=== PATIENT | male | born 1985 | race Caucasian/White ===

== ENCOUNTER 2018-01-03 00:05 | Emergency (ER) | payer SELFPAY ==
[~2018-01-03] VITALS: Ht 180.3 cm; Wt 63.6 kg
[~2018-01-03 00:05] MED LIST: CIPRODEX OTIC7.5 ML BOTH EARS; EXTRA STRENGTH500 M1 PO; FLEXERIL5 MG PO; FLONASE16 G1 BOTH NARES; IBUPROFEN800 MG PO; MOTRIN800 MG PO; NAPROSYN500 MG PO; NORCO 5/3251 TABLET PO; ZITHROMAX Z-PA250 MG PO
[2018-01-03 00:08] VITALS: BP 90/47
[2018-01-03] MEDS ORDERED: PROAIR HFA8.5 GM IH (01:29)
[2018-01-03] MEDS ORDERED: ZANTAC150 MG PO (01:29)
== END 2018-01-03 02:17 | disposition home or self-care (01) ==
LOC: EME 00:05
PROC: 0HQFXZZ Repair Right Hand Skin, External Approach (ICD-10-PCS; principal; 2018-01-03)
DX: S61.212A Laceration without foreign body of right middle finger without damage to nail, initial encounter (principal); S61.210A Laceration without foreign body of right index finger without damage to nail, initial encounter; W25.XXXA Contact with sharp glass, initial encounter
CPT/HCPCS: 99281; 99283

== ENCOUNTER 2018-05-07 16:19 | Emergency (ER) | payer SELFPAY ==
[~2018-05-07] VITALS: Ht 180.3 cm; Wt 61.1 kg
[~2018-05-07 16:19] MED LIST changes: +PROAIR HFA8.5 GM IH; +ZANTAC150 MG PO
[2018-05-07] MEDS ORDERED: MEDROL DOSEPAK4 MG PO (16:50)
[2018-05-07] MEDS ORDERED: KEFLEX500 MG PO (16:50)
[2018-05-07 17:08] VITALS: BP 129/84
== END 2018-05-07 17:09 | disposition home or self-care (01) ==
LOC: EME 16:19 → RME 16:19
DX: L23.9 Allergic contact dermatitis, unspecified cause (principal); F17.200 Nicotine dependence, unspecified, uncomplicated
CPT/HCPCS: 99281; 99284; J7512